=== PATIENT | male | born 1980 | race African-American/Black ===

== ENCOUNTER 2021-02-10 05:07 | Emergency (ER) | payer MEDICAID ==
[2021-02-10] MEDS ORDERED: KETOROLAC 60MG/2ML VIAL IM ONE (05:30)
[2021-02-10] MEDS ORDERED: IBUP-2030 MT (07:10)
[2021-02-10] MEDS ORDERED: METH-773 MT (07:10)
[2021-02-10 08:45] VITALS: BP 138/70
== END 2021-02-10 08:46 | disposition home or self-care (01) ==
LOC: ER 05:07
DX: M54.41 Lumbago with sciatica, right side (principal); R03.0 Elevated blood-pressure reading, without diagnosis of hypertension; W01.0XXA Fall on same level from slipping, tripping and stumbling without subsequent striking against object, initial encounter; Y93.89 Activity, other specified; Y92.59 Other trade areas as the place of occurrence of the external cause
CPT/HCPCS: 72100; 72220; 73502; 93971; 96372; 99284; J1885; Z7610